=== PATIENT | male | born 1985 | race Caucasian/White ===

== ENCOUNTER 2021-12-29 18:30 | Emergency (ER) | payer SELFPAY ==
[~2021-12-29] VITALS: Ht 165.1 cm; Wt 65.8 kg
[2021-12-29 18:49] VITALS: BP 168/99
--- NOTE | 2021-12-29 19:00 | NUR ---
Called first time - no show in lobby and outside.
--- NOTE | 2021-12-29 19:17 | NUR ---
Called second time - no show in lobby and outside.
--- NOTE | 2021-12-29 19:40 | NUR ---
PATIENT LEFT WITHOUT BEING SEEN BY BEATA JOSE. NO FURTHER CARE PROVIDED FOR PATIENT.
--- NOTE | 2021-12-29 19:40 | NUR ---
Called third time - no show in lobby and outside.
[2021-12-30] MEDS ORDERED: ACET-2619 PO (09:36)
[2021-12-30] MEDS ORDERED: LID5T TP (09:36)
== END 2021-12-29 19:40 | disposition left against medical advice (07) ==
LOC: MED 18:30
DX: M54.50 Low back pain, unspecified (principal); Z53.21 Procedure and treatment not carried out due to patient leaving prior to being seen by health care provider

== ENCOUNTER 2021-12-30 09:05 | Emergency (ER) | payer SELFPAY ==
[~2021-12-30] VITALS: Ht 167.6 cm; Wt 68.0 kg
[2021-12-30 09:09] VITALS: BP 167/97
--- NOTE | 2021-12-30 09:14 | NUR ---
PT AMB TO BED 2.
--- NOTE | 2021-12-30 09:29 | NUR ---
MD DONE BEDSIDE EXAM.
[2021-12-30] MEDS ORDERED: HYDROcodone/APAP 10/325 MG 1 TAB TAB PO STA (09:30)
[2021-12-30] MEDS ORDERED: ACET-2619 PO (09:36)
[2021-12-30] MEDS ORDERED: LID5T TP (09:36)
--- NOTE | 2021-12-30 09:37 | NUR ---
PT WAS MEDICATED PER MD ORDER.
--- NOTE | 2021-12-30 10:02 | NUR ---
PT REFUSED FURTHER TX. HE SAID CT IS TOO EXPENSIVE. HE WILL GO TO PMD TO ORDER CT. PT SINGED AMA FORM THEN LEFT ED IN STEADY GAIT.
== END 2021-12-30 09:40 | disposition left against medical advice (07) ==
LOC: MED 09:05
DX: M54.50 Low back pain, unspecified (principal); Z79.1 Long term (current) use of non-steroidal anti-inflammatories (NSAID); V49.88XA Car occupant (driver) (passenger) injured in other specified transport accidents, initial encounter; Y93.89 Activity, other specified; Y92.89 Other specified places as the place of occurrence of the external cause; Y99.8 Other external cause status
CPT/HCPCS: 99282